=== PATIENT | male | born 1965 | race Two or more races ===

== ENCOUNTER → 2019-03-20 | Outpatient (CLI) | payer OTHER ==
[2019-03-20 11:31] LABS: BASO % 1 % (0-3); EOS % 1 % (0-3); HEMATOCRIT 43.1 % (39.0-53.0); LYMPH # 1.6 x10^3/uL (1.0-4.8); LYMPH % 20 % (24-48); MEAN CORPUSCULAR HEMOGLOBIN 21 pg (25-35); MEAN CORPUSCULAR HGB CONC 30 g/dL (31-37); MEAN CORPUSCULAR VOLUME 69 fL (79-100); MONO # 1.2 x10^3/uL (0.0-1.1); MONO % 14 % (0-9); NEUT # 5.4 x10^3uL (1.8-7.7); NEUT % 65 % (31-73); PLATELET COUNT 260 x10^3/uL (140-400); RED BLOOD COUNT 6.24 x10^6/uL (4.30-5.70); RED CELL DISTRIBUTION WIDTH 16.4 % (11.5-14.5); WHITE BLOOD COUNT 8.3 x10^3/uL (4.0-11.0)
[2019-03-20 11:43] LABS: ALBUMIN 3.3 g/dL (3.4-5.0); ALBUMIN/GLOBULIN RATIO 0.9 (1.0-1.7); C REACTIVE PROTEIN 21.8 mg/L (0-3.3); CALCIUM 9.3 mg/dL (8.5-10.1); CREATININE 1.2 mg/dL (0.7-1.3); GFR 62.6; POTASSIUM 4.9 mmol/L (3.5-5.1); TOTAL BILIRUBIN 0.6 mg/dL (0.2-1.0); TOTAL PROTEIN 6.8 g/dL (6.4-8.2)
[2019-03-20 13:01] LABS: SEDIMENTATION RATE 4 (0-15)
[2019-03-20 13:06] LABS: PLT ESTIMATE ADEQUATE (ADEQUATE)
[2019-03-20 13:07] LABS: HYPOCHROMIA MOD; POLYCHROMASIA SLIGHT
[2019-03-20 13:08] LABS: ANISOCYTOSIS PRESENT; MICROCYTOSIS MOD; POIKILOCYTOSIS PRESENT; TARGET CELLS PRESENT; TEAR DROP CELLS OCC
[2019-03-20 13:09] LABS: OVALOCYTES FEW
== END | disposition home or self-care (01) ==
LOC: SPEC 11:09
PROVIDERS: ATTEND Family Medicine
DX: R10.84 Generalized abdominal pain (principal)
CPT/HCPCS: 36415; 80053; 83690; 85025; 85651; 86140

== ENCOUNTER → 2019-03-24 | Outpatient (CLI) | payer OTHER ==
[2019-03-24 13:30] LABS: BASO % 0 % (0-3); EOS # 0.1 x10^3/uL (0.0-0.7); EOS % 1 % (0-3); HEMATOCRIT 42.8 % (39.0-53.0); HEMOGLOBIN 12.8 g/dL (13.0-17.5); LYMPH # 1.5 x10^3/uL (1.0-4.8); LYMPH % 20 % (24-48); MEAN CORPUSCULAR HEMOGLOBIN 21 pg (25-35); MEAN CORPUSCULAR HGB CONC 30 g/dL (31-37); MEAN CORPUSCULAR VOLUME 69 fL (79-100); MONO # 1.3 x10^3/uL (0.0-1.1); MONO % 18 % (0-9); NEUT # 4.6 x10^3uL (1.8-7.7); NEUT % 61 % (31-73); PLATELET COUNT 240 x10^3/uL (140-400); RED BLOOD COUNT 6.19 x10^6/uL (4.30-5.70); RED CELL DISTRIBUTION WIDTH 16.5 % (11.5-14.5); WHITE BLOOD COUNT 7.5 x10^3/uL (4.0-11.0)
[2019-03-24 13:44] LABS: ALBUMIN 3.1 g/dL (3.4-5.0); ALBUMIN/GLOBULIN RATIO 0.9 (1.0-1.7); CALCIUM 8.9 mg/dL (8.5-10.1); CREATININE 1.1 mg/dL (0.7-1.3); GFR 69.2; POTASSIUM 5.3 mmol/L (3.5-5.1); TOTAL BILIRUBIN 0.7 mg/dL (0.2-1.0); TOTAL PROTEIN 6.5 g/dL (6.4-8.2)
[2019-03-24 13:56] LABS: PLT ESTIMATE ADEQUATE (ADEQUATE)
[2019-03-24 13:57] LABS: ANISOCYTOSIS PRESENT; MICROCYTOSIS MOD; OVALOCYTES OCC; POIKILOCYTOSIS PRESENT; POLYCHROMASIA MOD; TARGET CELLS FEW; TEAR DROP CELLS OCC
[2019-03-24 14:02] LABS: HYPOCHROMIA PRESENT
== END | disposition home or self-care (01) ==
LOC: SPEC 13:16 → EEVIPCON 13:16
PROVIDERS: ATTEND Family Medicine
DX: E86.0 Dehydration (principal); R10.84 Generalized abdominal pain
CPT/HCPCS: 36415; 80053; 85025

== ENCOUNTER → 2019-03-26 | Outpatient (CLI) | payer OTHER ==
[~2019-03-26] MED LIST: IOHEXOL 240 MG/ML 50ML VIAL. ONE; IOHEXOL 240 MG/ML 50ML VIAL. PO ONE; IOHEXOL 300 MG/ML 75 ML VIAL. IV ONE
--- NOTE | 2019-03-26 16:43 | RAD ---
Study: CT abdomen and pelvis without contrast Indication: Right upper quadrant pain. Comparison: None. Technique: Helical CT imaging performed of the abdomen and pelvis without the use of intravenous contrast. Sagittal and coronal reformats were obtained. One or more of the following individualized dose reduction techniques were utilized for this examination: 1. Automated exposure control 2. Adjustment of the mA and/or kV according to patient size 3. Use of iterative reconstruction technique. Findings: Partially visualized at least moderate volume right pleural effusion. Small left pleural effusion. Bibasilar atelectasis. Nodular focus along the left pleural effusion, image 15 series 2, favored related to volume loss. No focal hepatic abnormality. The gallbladder is distended. No calcified gallstones or pericholecystic inflammatory changes. Unremarkable pancreas, spleen and adrenal glands. No hydroureteronephrosis. Circumferential wall thickening of the urinary bladder. Portions of the colon are mildly thick walled such as at the splenic flexure however favored mostly related to collapse. A degree of reactive wall thickening involving the sigmoid colon may be present. At the cecum and ascending colon, scattered foci of air appear to be within the lumen and not definitively extraluminal or within the colonic wall. Nonobstructed small bowel. Small hiatal hernia. No discrete abnormality of the partially distended stomach. At the left aspect of the abdomen scattered small bowel exhibits wall thickening however it is not uncommon to see small bowel wall thickening in this region. [employer] thickening on image 51 series 2. Free fluid is seen within the pelvis as well as adjacent to the cecum. Fluid distends on the left inguinal canal. Note is made that the appendix is not well visualized. Nonaneurysmal aorta. Minimal calcific atherosclerosis. Multifocal body wall edema. No acute or destructive osseous abnormality. Scattered degenerative changes most notable at the lower lumbar spine. Impression: 1. No definite acute abnormality is seen at the right lower quadrant. Scattered foci of air along the cecum and ascending colon appear intraluminal and not definitively outside of the lumen or within the wall. A process such as pneumatosis from bowel ischemia is felt unlikely to account for this appearance though recommend correlation with lactate levels and consider follow-up as deemed necessary. 2. The appendix is not well visualized. Relatively small volume free fluid within the pelvis and scattered elsewhere such as adjacent to the cecum but note is made that there is a moderate/large right and small left pleural effusion and findings of body wall edema and this fluid could represent ascites. 3. Distended gallbladder without CT findings of acute cholecystitis. 4. Circumferential wall thickening of the urinary bladder. This may be related to underdistention though recommend correlation with urinalysis. Electronically signed by: CUCO BRAND MD (03/26/2019 4:40 PM) [id number]
== END | disposition home or self-care (01) ==
LOC: EEVIPCON 12:41 → CT 12:41
PROVIDERS: ATTEND Family Medicine
DX: K82.8 Other specified diseases of gallbladder (principal); K44.9 Diaphragmatic hernia without obstruction or gangrene; I70.0 Atherosclerosis of aorta; J90 Pleural effusion, not elsewhere classified; J98.11 Atelectasis
CPT/HCPCS: 74176